=== PATIENT | male | born 1955 | race Caucasian/White ===

== ENCOUNTER 2019-10-08 17:44 | Emergency (ER) | payer OTHER ==
[2019-10-08] MEDS ORDERED: DIAZEPAM 5 MG/ML 2 ML INJ IVP STA (18:13)
[2019-10-08] MEDS ORDERED: GLUCAGON 1 MG/ML VIAL IVP STA (18:13)
--- NOTE | 2019-10-08 18:13 | ED ---
General Adult HPI - General Chief complaint: Skin/Abscess/Foreign Body Stated complaint: FB in throat Time Seen by Provider: 10/08/19 17:50 Source: patient Mode of arrival: ambulatory Limitations: no limitations - History of Present Illness Initial comments: Patient is a 64-year-old male with past history of esophageal strictures who presents to the emergency room with reported foreign body in his throat. The patient states that he was eating a hotdog 45 minutes prior to hospital arrival when he felt it get stuck in the back of his throat. States that this has happened to him multiple times. He had have emergency surgery 20 years ago to have food retrieved. States that he was following up and having dilations performed every several years. States that his last dilation was 7 years ago and he has been doing well since. He follows with Dr. Vazquez. Last EGD was 2 years ago. Patient denies shortness of breath. He is unable to tolerate his own secretions. There are no other alleviating, precipitating or modifying factors - Related Data Allergies Allergy/AdvReac Type Severity Reaction Status Date / Time No Known Allergies Allergy Verified 10/08/19 17:51 Review of Systems ROS Statement: Those systems with pertinent positive or pertinent negative responses have been documented in the HPI. ROS Other: All systems not noted in ROS Statement are negative. Past Medical History Past Medical History: GERD/Reflux Additional Past Medical History / Comment(s): Strictures in throat History of Any Multi-Drug Resistant Organisms: None Reported Past Psychological History: No Psychological Hx Reported Smoking Status: Never smoker Past Alcohol Use History: None Reported Past Drug Use History: None Reported General Exam Limitations: no limitations General appearance: alert, in no apparent distress Head exam: Present: atraumatic, normocephalic, normal inspection Eye exam: Present: normal appearance, PERRL, EOMI. Absent: scleral icterus, conjunctival injection, periorbital swelling ENT exam: Present: normal exam, mucous membranes moist Neck exam: Present: normal inspection. Absent: tenderness, meningismus, lymphadenopathy Respiratory exam: Present: normal lung sounds bilaterally. Absent: respiratory distress, wheezes, rales, rhonchi, stridor Cardiovascular Exam: Present: regular rate, normal rhythm, normal heart sounds. Absent: systolic murmur, diastolic murmur, rubs, gallop, clicks Course Vital Signs 10/08/19 10/08/19 10/08/19 17:49 17:59 19:59 Temperature 98.7 F 98.4 F 98.3 F Pulse Rate 69 88 86 Respiratory 16 16 18 Rate Blood Pressure 154/93 151/87 145/101 O2 Sat by Pulse 98 98 100 Oximetry 10/08/19 10/08/19 20:51 21:25 Temperature 98 F Pulse Rate 103 H 80 Respiratory 18 18 Rate Blood Pressure 139/86 128/76 O2 Sat by Pulse 96 100 Oximetry - Reevaluation(s) Reevaluation #1: 10/08/19 18:40 patient reevaluated and has had no improvement Reevaluation #2: 10/08/19 18:[address] Vazquez Reevaluation #3: 10/08/19 19:21 Discuss the case with Dr. Vazquez who will take the patient for endoscopy Medical Decision Making - Medical Decision Making Upon arrival the patient is placed in room 2. A thorough history and physical exam was performed. Patient is spitting saliva in bedside bermeo. No signs of respiratory distress. Patient has peripheral IV established. Given 1 L of fluid as well as 2 mg of Valium and 1 mg of Glucagon. patient has no improvement upon reevaluation. i did page dr. vazquez. she does return my page and will take patient for endoscopy. patient remained nothing by mouth EGD performed in ER with sedation. Patient relaxing comfortably afterwards and feels well. Patient discharged after he reached his normal level of consciousness and neurological function. He is to follow up with Dr. Vazquez. Disposition Clinical Impression: Esophageal foreign body Disposition: HOME SELF-CARE Condition: Stable Instructions (If sedation given, give patient instructions): Esophageal Foreign Body (ED), Moderate Sedation (ED) Additional Instructions: Please follow-up with Dr. Vogt. Return to the emergency room for any new or worsening symptoms Is patient prescribed a controlled substance at d/c from ED?: No Referrals: Bolivar Beltre MD [Primary Care Provider] - 1-2 days Torie Vazquez MD [Family Provider] - 1-2 days Time of Disposition: 21:16
[2019-10-08] MEDS ORDERED: SODIUM CHLORIDE 0.9% 1,000 ML IV ONE (18:14)
--- NOTE | 2019-10-08 18:40 | XR ---
EXAMINATION TYPE: XR chest 1V portable DATE OF EXAM: 10/08/2019 COMPARISON: NONE HISTORY: Possible foreign body TECHNIQUE: Single view FINDINGS: Heart and mediastinum are normal. Lungs are clear. Diaphragm is normal. Bony thorax appears normal. IMPRESSION: Normal chest. There is no evidence of thoracic form body. A wooden stick is probably not visible on chest x-ray.
[2019-10-08 19:59] VITALS: RESP 18
[2019-10-08] MEDS ORDERED: PROPOFOL 10 MG/ML 20 ML VIAL IV ONE (20:30)
[2019-10-08] MEDS ORDERED: SUCCINYLCHOLINE CHLORIDE 100 MG/5 ML SYR IV ONE (20:30)
[2019-10-08] MEDS ORDERED: IV FLUID CONTINUATION 1,000 ML IV ONE (20:47)
--- NOTE | 2019-10-08 20:47 | P.PCN ---
Date of Procedure: 10/08/19 Procedure(s) Performed: BRIEF HISTORY: Patient is a 64-year-old, pleasant, white male in the emergency room with acute for dysphagia. Prior history of esophageal stricture. Last EGD with foreign body removal was 2 years ago. He scheduled for an upper endoscopy an emergency basis in the ER. PROCEDURE PERFORMED: Esophagogastroduodenoscopy with biopsy and foreign body removal. PREOPERATIVE DIAGNOSIS: Acute food impaction. anesthesia. General PROCEDURE: After informed consent was obtained, the patient was brought into the endoscopy unit. IV sedation was administered by Anesthesia under continuous monitoring. Initially the Olympus GIF-140 video endoscope was inserted into the mouth. Esophagus intubated without any difficulty. There was a large piece of meat lodged in the distal esophagus and using a snare was able to gently withdrawn part of the It was gradually advanced into the stomach and duodenum and carefully examined. The bulb and the second part of the duodenum appeared normal. The scope at this time was withdrawn to the stomach, adequately insufflated with air, and upon careful examination, mucosa of the antrum, body, cardia and the fundus appeared normal. The scope was then withdrawn into the esophagus. The GE junction was located at 39 cm from the incisors. There was a distal esophageal stricture identified. Also there were thickened mucosal folds noted in the mid and distal esophagus. The rest of the esophagus appeared normal. There were no erosions or ulcerations seen . Multiple biopsies were done in the mid and distal esophagus to rule out eosinophilic esophagitis and the patient tolerated the procedure well. IMPRESSION: 1. Piece of hot dog lodged in the distal esophagus status post removal as described above. 2. Distal esophageal stricture and thickened esophageal folds status post biopsy to rule out reflux esophagitis was a significant esophagitis. RECOMMENDATIONS: The findings of this examination were discussed with the patient as well as his family. He was advised to follow up the biopsy results. He'll be on a soft diet. Recommended starting Prilosec 20 mg daily and follow up in office in 2-3 weeks..
[2019-10-08 21:26] VITALS: BP 128/76; PULSE 80; TEMP 98
--- NOTE | 2019-10-09 08:47 | CONS ---
CONSULTATION DATE OF SERVICE: 10/08/2019 REQUESTING PHYSICIAN: Dr. Beltre. REASON FOR CONSULTATION: Acute food impaction. HISTORY OF PRESENT ILLNESS: A 54-year-old white male with history of esophageal stricture, came to the emergency room after eating dinner. He could not swallow any further. After he took a bite of , he feels like it is stuck in the back of his throat. He came to the emergency room. He was given some glucagon with no help and hence we are consulted for an emergency upper endoscopy. The patient states that he had a similar episode about 3 years ago and had an EGD with foreign body removal. PAST MEDICAL HISTORY: Esophageal stricture and gastroesophageal reflux disease. PAST SURGICAL HISTORY: Multiple EGDs. MEDICATIONS: At home none. No known drug allergies. SOCIAL HISTORY: No smoking. No alcohol use. FAMILY HISTORY: Unremarkable. REVIEW OF SYSTEMS: CARDIOPULMONARY: No chest pain, shortness of breath. no dysuria or hematuria. MUSCULOSKELETAL unremarkable. SKIN unremarkable. NEUROLOGY unremarkable. ENDOCRINE unremarkable. PSYCHIATRIC: Unremarkable. CONSTITUTIONAL: No fever, chills, night sweats. EXAMINATION: He appears comfortable. No apparent distress. Vital signs stable. Blood pressure 154/92. Pulse rate 69. Temperature 98.7. HEENT examination unremarkable. Conjunctivae pink. Sclerae anicteric. Oral cavity no lesions. NECK: No JVD or lymph node enlargement. CHEST: Clear to auscultation. HEART: Regular rate and rhythm. ABDOMEN: Soft, bowel sounds positive. No organomegaly. EXTREMITIES: No pedal edema. NEURO: He is alert and oriented times three. No focal deficits. No labs available. IMPRESSION: food impaction in this patient . RECOMMENDATIONS: emergency foreign body removal. The patient understands risks, benefits and complications of the procedure and is agreeable to it. Thank you for this consultation. MMODL / IJN: [id number] /
== END 2019-10-08 21:26 | disposition home or self-care (01) ==
LOC: EC 17:44
DX: K22.2 Esophageal obstruction (principal); K21.9 Gastro-esophageal reflux disease without esophagitis; T18.128A Food in esophagus causing other injury, initial encounter; X58.XXXA Exposure to other specified factors, initial encounter; Y93.89 Activity, other specified
CPT/HCPCS: 43239; 43247; 71045; 88305; 88312; 96361; 96374; 96375; 99284

== ENCOUNTER 2019-11-22 07:25 | Day surgery (SDC) | payer OTHER ==
[2019-11-20 14:51] VITALS: BMI 26.3
[~2019-11-22 07:25] MED LIST: LACTATED RINGERS 1,000 ML IV SCH
[2019-11-22 09:05] VITALS: TEMP 97.2
[2019-11-22] MEDS ORDERED: LIDOCAINE 1% INJ 10MG/ML (20 ML MDV) ONE (10:05)
[2019-11-22] MEDS ORDERED: PROPOFOL 10 MG/ML 20 ML VIAL IV ONE (10:05)
--- NOTE | 2019-11-22 10:15 | P.PCN ---
Date of Procedure: 11/22/19 Procedure(s) Performed: BRIEF HISTORY: Patient is a 62-year-old, pleasant, male scheduled for an upper endoscopy for evaluation of recent episode of acute food impaction requiring an emergency upper endoscopY which revealed a distal esophageal stricture. He scheduled for an upper endoscopy with dilation today. PROCEDURE PERFORMED: Esophagogastroduodenoscopy with biopsy and dilation. PREOPERATIVE DIAGNOSIS: Intermittent dysphagia to solids and esophageal stricture IV sedation per anesthesia. PROCEDURE: After informed consent was obtained, the patient was brought into the endoscopy unit. IV sedation was administered by Anesthesia under continuous monitoring. Initially the Olympus GIF-140 video endoscope was inserted into the mouth. Esophagus intubated without any difficulty. It was gradually advanced into the stomach and duodenum and carefully examined. The bulb and the second part of the duodenum appeared normal. The scope at this time was withdrawn to the stomach, adequately insufflated with air, and upon careful examination, mucosa of the antrum, body, cardia and the fundus appeared normal. The scope was then withdrawn into the esophagus. The GE junction was located at 39 cm from the incisors. There was a distal esophageal stricture identified and this was dilated using 15 mm TTS balloon in a sequential fashion for 60 seconds. THERE was a small mucosal tear with oozing identified and hence further dilation was not performed. There was a mucosal folds in the distal esophagus consistent with eosinophilic esophagitis and biopsies were done from this area. The rest of the esophagus appeared normal. There were no erosions or ulcerations seen and the patient tolerated the procedure well. IMPRESSION: 1. Distal esophageal stricture status post balloon dilation using 15 and 16-1/2 mm TTS balloon as described above. 2. Thickened distal esophageal folds consistent with eosinophilic esophagitis. RECOMMENDATIONS: The findings of this examination were discussed with the patient as well as his family. He was advised to follow with the biopsy results. He'll remain on a clear liquid diet. He will continue with Prilosec 20 mg twice daily will be seen in office in 3 months.
[2019-11-22 10:31] VITALS: BP 127/78; PULSE 67; RESP 18
== END 2019-11-22 10:47 | disposition home or self-care (01) ==
LOC: ORWHC2ENDO 07:25
PROVIDERS: ATTEND Internal Medicine Gastroenterology
DX: K22.2 Esophageal obstruction (principal); K22.8 Other specified diseases of esophagus; R89.7 Abnormal histological findings in specimens from other organs, systems and tissues; K21.9 Gastro-esophageal reflux disease without esophagitis; Z79.899 Other long term (current) drug therapy; Z97.2 Presence of dental prosthetic device (complete) (partial); Z98.890 Other specified postprocedural states
CPT/HCPCS: 88305; 43239; 43249; J2001; J2704; C1726

== ENCOUNTER → 2020-11-29 | Outpatient (CLI) | payer OTHER ==
[2020-11-29 11:20] LABS: Chol/HDL Ratio 5.45
== END | disposition home or self-care (01) ==
LOC: LABWHC1 07:09
PROVIDERS: ATTEND Internal Medicine
DX: E78.5 Hyperlipidemia, unspecified (principal)
CPT/HCPCS: 36415; 80061

== ENCOUNTER 2021-02-23 18:14 | Emergency (ER) | payer OTHER ==
[2021-02-23 19:57] VITALS: PULSE 69; TEMP 99.8
--- NOTE | 2021-02-23 20:48 | ED ---
General Adult HPI - General Chief complaint: ENT Stated complaint: food stuck in throat Time Seen by Provider: 02/23/21 20:29 Source: patient Mode of arrival: ambulatory Limitations: no limitations - History of Present Illness Initial comments: Dictation was produced using WebPT dictation software. please excuse any grammatical, word or spelling errors. Chief Complaint: 65-year-old male past medical history of esophageal disorder presents emergency department for esophageal foreign body. History of Present Illness: Sutured 5-year-old male he has had multiple issues with esophageal food boluses. He states that he was at dinner today 1 hour prior to arrival. States he had some Cajun steak bites plan will after his second bite he felt like pieces steak stuck in his throat. His is not unfamiliar to him before. Patient has had this happen on multiple occasions. So that he has some sort of esophageal stricture. Patient denies any trouble breathing. He states he is getting up because if he swallows suspicion he'll throw it up. Chart review shows that patient has history of distal esophageal stricture. He has required balloon dilatations in the past. The ROS documented in this emergency department record has been reviewed and confirmed by me. Those systems with pertinent positive or negative responses have been documented in the HPI. All other systems are other negative and/or noncontributory. PHYSICAL EXAM: General Impression: Alert and oriented x3, not in acute distress HEENT: Normocephalic atraumatic, extra-ocular movements intact, pupils equal and reactive to light bilaterally, mucous membranes moist. Cardiovascular: Heart regular rate and rhythm Chest: Able to complete full sentences, no retractions, no tachypnea Abdomen: abdomen soft, non-tender, non-distended, no organomegaly Musculoskeletal: Pulses present and equal in all extremities, no peripheral edema Motor: no focal deficits noted Neurological: CN II-XII grossly intact, no focal motor or sensory deficits noted Skin: Intact with no visualized rashes Psych: Normal affect and mood ED course: 65-year-old well-appearing male presents emergency department for chief complaint of esophageal foreign body. Signs upon arrival are within acceptable limits. Case was discussed with Dr. Combs who is known in our hospital for performing subways procedures despite being a general surgeon. She was called and states she's not interested in performing this procedure. She requests that patient be transferred to another facility for this procedure to be performed. Case was discussed with [facility] for possible transfer. They refused the transfer because they cannot guarantee that patient will not to be admitted after the scope. Apparently [facility] is not accepting patients for admission at this time. Disposition options were discussed. I did speak with Dr. Machado who is willing to have patient admitted under his service until Dr. Vazquez can be available tomorrow. Patient's at the bedside requested that they be discharged. They will drive to [facility] or [place] where they can be evaluated. She understands the risk of this decision. Told to call 911 if things get worse. - Related Data Home Medications Medication Instructions Recorded Confirmed Omeprazole [PriLOSEC] 40 mg PO DAILY 11/20/19 11/20/19 Allergies Allergy/AdvReac Type Severity Reaction Status Date / Time No Known Allergies Allergy Verified 02/23/21 19:57 Review of Systems ROS Statement: Those systems with pertinent positive or pertinent negative responses have been documented in the HPI. ROS Other: All systems not noted in ROS Statement are negative. Past Medical History Past Medical History: GERD/Reflux Additional Past Medical History / Comment(s): Strictures in throat,recent ER visit for food lodged in throat History of Any Multi-Drug Resistant Organisms: None Reported Past Surgical History: Orthopedic Surgery Additional Past Surgical History / Comment(s): mult EGDs with dilation,hand surgery Past Anesthesia/Blood Transfusion Reactions: No Reported Reaction Past Psychological History: No Psychological Hx Reported Smoking Status: Never smoker Past Alcohol Use History: None Reported Past Drug Use History: None Reported - Past Family History Mother Family Medical History: No Reported History General Exam Limitations: no limitations Course Vital Signs 02/23/21 19:54 Temperature 99.8 F H Pulse Rate 69 Respiratory 18 Rate Blood Pressure 168/98 O2 Sat by Pulse 99 Oximetry Disposition Clinical Impression: Esophageal foreign body Disposition: OTHER INSTITUTION NOT DEFINED Condition: Fair Instructions (If sedation given, give patient instructions): Esophageal Foreign Body (ED) Referrals: Emilee Quintero MD [Primary Care Provider] - 1-2 days - Out of Hospital Transfer - Req. Specs Out of Hospital Transfer - Requested Specifics: Other Emergency Center (find an emergency department w GI service available to do endoscopy)
[2021-02-23] MEDS ORDERED: MORPHINE SULFATE 4 MG/ML SYRINGE IV STA (21:49)
[2021-02-23 22:17] VITALS: BP 130/84; RESP 20
== END 2021-02-23 22:17 | disposition other institution (70) ==
LOC: EC 18:14
DX: T18.128A Food in esophagus causing other injury, initial encounter (principal); K21.9 Gastro-esophageal reflux disease without esophagitis; Z79.899 Other long term (current) drug therapy; X58.XXXA Exposure to other specified factors, initial encounter
CPT/HCPCS: 99284

== ENCOUNTER → 2021-07-07 | Outpatient (CLI) | payer OTHER ==
--- NOTE | 2021-07-08 08:26 | XR ---
EXAMINATION TYPE: XR cervical spine comp DATE OF EXAM: 07/07/2021 COMPARISON: None HISTORY: Neck pain TECHNIQUE: 5 view cervical spine FINDINGS: There is foraminal narrowing at C5-6 bilaterally. Mild disc space narrowing at posterior C3 -4 and diffusely C5-6. Odontoid is limited with overlying occiput. There may be some left carotid vas cular calcification. Vertebral body heights are preserved. IMPRESSION: 1. Foraminal narrowing bilaterally at C5-6 2. Mild disc narrowing C5-C6 and posteriorly at C3-4
== END | disposition home or self-care (01) ==
LOC: RADXRMAIN 17:08
PROVIDERS: ATTEND Internal Medicine Geriatric Medicine
DX: M50.822 Other cervical disc disorders at C5-C6 level (principal); M99.71 Connective tissue and disc stenosis of intervertebral foramina of cervical region
CPT/HCPCS: 72050

== ENCOUNTER → 2021-09-12 | Outpatient (CLI) | payer OTHER ==
--- NOTE | 2021-09-13 04:13 | MR ---
EXAMINATION TYPE: MR cervical spine wo con DATE OF EXAM: 09/12/2021 COMPARISON: None HISTORY: Neck pain, right shoulder pain for 3 months. Images obtained from the skull base to T1 vertebra without contrast. Normal alignment. Disc spaces are fairly normal. There are posterior disc bulging at C4-5 and C5-6. The facet joints are intact. There is developmentally large spinal canal and no spinal stenosis. Brai nstem is intact. No evidence of focal bone destruction. IMPRESSION: Mild posterior disc bulging and herniation at C4-5 and C5-6 but no spinal stenosis.
== END | disposition home or self-care (01) ==
LOC: RADMRIMAIN 21:26
PROVIDERS: ATTEND Internal Medicine Geriatric Medicine
DX: M50.221 Other cervical disc displacement at C4-C5 level (principal)
CPT/HCPCS: 72141